=== PATIENT | female | born 1960 | race Caucasian/White ===

== ENCOUNTER 2023-05-01 21:23 | Emergency (ER) | payer OTHER ==
[~2023-05-01] VITALS: Ht 165.1 cm; Wt 77.0 kg
[2023-05-01 22:09] LABS: BASOPHILS % 0.9 % (0.0-2.0); EOSINOPHILS % 3.3 % (0.0-5.0); HEMOGLOBIN. 14.8 g/dL (12.0-16.0); LYMPHOCYTES % 39.8 % (20.0-50.0); MEAN CORPUSCULAR HEMOGLOBIN 28.8 pg (28.0-32.0); MEAN CORPUSCULAR VOLUME 87.3 fL (81.0-99.0); MEAN PLATELET VOLUME 7.7 fl (7.4-10.4); MONOCYTES % 5.5 % (2.0-8.0); NEUTROPHILS % 50.5 % (40.0-76.0); PLATELET 312 x1000/uL (130-400); RED BLOOD CELL COUNT 5.16 mill/uL (4.2-5.4)
[2023-05-01 22:21] LABS: CHLORIDE 99 mEq/L (98-107)
[2023-05-01 22:28] LABS: ETHANOL BLOOD 140 mg/dL (-10)
[2023-05-01 22:44] LABS: PROTHROMBIN TIME 10.5 sec (9.6-11.0)
[2023-05-01] MEDS ORDERED: SODIUM CHLORIDE 0.9% 1,000 ML IV ONE (23:00)
[2023-05-02 01:15] VITALS: BP 126/61
== END 2023-05-02 01:20 | disposition home or self-care (01) ==
LOC: ER 21:23
DX: S00.03XA Contusion of scalp, initial encounter (principal); E11.9 Type 2 diabetes mellitus without complications; E78.00 Pure hypercholesterolemia, unspecified; I10 Essential (primary) hypertension; W19.XXXA Unspecified fall, initial encounter; Y93.89 Activity, other specified; Y92.89 Other specified places as the place of occurrence of the external cause; Y99.8 Other external cause status
CPT/HCPCS: 36415; 70450; 72125; 80053; 80320; 82962; 85025; 85610; 96360; 96361; 99284; J7030; G0480

== ENCOUNTER 2025-04-24 20:50 | Emergency (ER) | payer MEDICARE, MEDICAID ==
[~2025-04-24] VITALS: Ht 154.9 cm; Wt 74.0 kg
[2025-04-24 21:07] VITALS: TEMP 37.1
[2025-04-24 21:20] LABS: BASOPHILS % 0.5 % (0.0-2.0); EOSINOPHILS % 3.8 % (0.0-5.0); HEMATOCRIT. 44.7 % (36.0-48.0); LYMPHOCYTES % 37.9 % (20.0-50.0); MEAN CORPUSCULAR HEMOGLOBIN 29.1 pg (28.0-32.0); MEAN CORPUSCULAR HGB CONC 33.5 g/dL (31.0-37.0); MEAN CORPUSCULAR VOLUME 86.7 fL (81.0-99.0); MEAN PLATELET VOLUME 7.4 fl (7.4-10.4); MONOCYTES % 5.7 % (2.0-8.0); NEUTROPHILS % 52.1 % (40.0-76.0); PLATELET 277 x1000/uL (130-400); RED BLOOD CELL COUNT 5.15 mill/uL (4.2-5.4); RED CELL DISTRIBUTION WIDTH 13.3 % (11.6-14.6); WHITE BLOOD COUNT 9.6 x1000/uL (4.5-11.0)
[2025-04-24 21:27] LABS: CHLORIDE 105 mEq/L (98-107); POTASSIUM 4.1 mEq/L (3.5-5.1); SODIUM 142 mEq/L (136-145)
[2025-04-24 21:28] LABS: CARBON DIOXIDE 28 mEq/L (21-32)
[2025-04-24] MEDS: ASPIRIN 81MG TABLET PO ONE (21:31)
[2025-04-24] MEDS: ALBUTEROL (0.083%) 2.5MG/3ML NEB HHN ONE (21:32)
[2025-04-24 21:33] LABS: CREATININE 0.7 mg/dL (0.6-1.0); GLUCOSE 183 mg/dL (70-105); UREA NITROGEN BLOOD 13 mg/dL (9-23)
[2025-04-24 21:35] VITALS: PULSE 85; RESP 18; O2SAT 97
[2025-04-24 21:37] LABS: D-DIMER 0.22 mg/L FEU (<0.50); INR 0.9; PARTIAL THROMBOPLASTIN TIME 25.4 sec (23.4-31.0); PROTHROMBIN TIME 9.8 sec (9.6-11.0)
[2025-04-24 21:47] LABS: TROPONIN I HIGH SENSITIVITY < 4 ng/L (3.0-34)
[2025-04-24] MEDS ORDERED: GUAI-450 MT (22:19)
[2025-04-24] MEDS ORDERED: ALBU18HF2 IH (22:19)
[2025-04-24] MEDS ORDERED: P50 MT (22:19)
[2025-04-24] MEDS ORDERED: IBUP-2029 MT (22:19)
[2025-04-24 22:35] VITALS: BP 131/62; PULSE 84; RESP 16; O2SAT 99
[2025-04-24] MEDS: KETOROLAC 30MG/ML VIAL IV ONE (22:35)
== END 2025-04-24 22:45 | disposition home or self-care (01) ==
LOC: ER 20:50
DX: J06.9 Acute upper respiratory infection, unspecified (principal); J45.909 Unspecified asthma, uncomplicated; E11.9 Type 2 diabetes mellitus without complications; E78.00 Pure hypercholesterolemia, unspecified; I10 Essential (primary) hypertension; Z79.899 Other long term (current) drug therapy
CPT/HCPCS: 36415; 71045; 80048; 83880; 84484; 85025; 85379; 93005; 94070; 94640; 99285